=== PATIENT | female | born 1930 | race Caucasian/White ===

== ENCOUNTER → 2018-02-27 | Outpatient (CLI) | payer MEDICARE, OTHER ==
[~2018-02-27] MED LIST: ATENOLOL 100MG100 MG PO; B COMPLEX WITH1 EAC1 PO; CALCIUM 500 +1 EAC5 PO; CARDIZEM CD180 MG PO; CARDIZEM CD240 MG PO; LASIX 40 MG TAB40 M2 PO; LIDODERM 5%1 PATC1 TRANSDERM; LIVALO2 MG PO; LYRICA 75 MG CA75 MG PO; METFORMIN HCL500 MG PO; PAXIL10 MG PO; PRADAXA150 MG PO; PROTONIX40 M1 PO; TRAMADOL 50 MG50 MG PO; TYLENOL325 MG PO
== END ==
LOC: M.CT 13:41
DX: G31.9 Degenerative disease of nervous system, unspecified (principal); G93.89 Other specified disorders of brain